=== PATIENT | female | born 1980 | race Caucasian/White ===

== ENCOUNTER 2017-12-13 11:43 | Emergency (ER) | payer MEDICAID ==
[~2017-12-13] VITALS: Ht 160 cm; Wt 72.6 kg
[2017-12-13] MEDS ORDERED: WARFARIN SODIUM5 MG PO (12:07)
[2017-12-13] MEDS ORDERED: WARFARIN SODIUM10 MG PO (12:08)
[2017-12-13] MEDS ORDERED: GABAPENTIN300 MG PO (12:37)
== END 2017-12-13 16:52 | disposition home or self-care (01) ==
LOC: ED 11:43
DX: R10.31 Right lower quadrant pain (principal); R10.32 Left lower quadrant pain; F31.9 Bipolar disorder, unspecified; F20.9 Schizophrenia, unspecified; F17.200 Nicotine dependence, unspecified, uncomplicated; Z88.1 Allergy status to other antibiotic agents; Z79.899 Other long term (current) drug therapy; Z79.01 Long term (current) use of anticoagulants
CPT/HCPCS: 74177; 80053; 81001; 83690; 84702; 85025; 85610; 96374; 96375; 99284; J1170; J1885; J2405; J2550; J7030; Q9967